=== PATIENT | female | born 1975 | race Caucasian/White ===

== ENCOUNTER 2019-02-20 23:27 | Emergency (ER) | payer MEDICAID ==
[~2019-02-20] VITALS: Ht 167.6 cm; Wt 55.2 kg
[2019-02-21] MEDS ORDERED: LIDOcaine 1% w/epiNEPHrine 1:200,000 30ml vial IM ONE (00:05)
[2019-02-21] MEDS ORDERED: CEPH-572 PO (00:06)
[2019-02-21] MEDS ORDERED: SULF1TAB49 PO (00:06)
[2019-02-21 00:54] VITALS: BP 127/64
== END 2019-02-21 00:56 | disposition home or self-care (01) ==
LOC: ER 23:28
DX: L02.11 Cutaneous abscess of neck (principal); L03.221 Cellulitis of neck; Z91.040 Latex allergy status
CPT/HCPCS: 10060; 99284